=== PATIENT | female | born 1980 | race Caucasian/White ===

== ENCOUNTER 2018-04-16 06:03 | Emergency (ER) | payer MEDICAID ==
[~2018-04-16] VITALS: Ht 147.3 cm; Wt 61.3 kg
[~2018-04-16 06:03] MED LIST: ONDA8TAB9 PO
[2018-04-16 06:10] VITALS: BP 128/49
== END 2018-04-16 06:47 | disposition home or self-care (01) ==
LOC: ER 06:04
DX: J06.9 Acute upper respiratory infection, unspecified (principal); J45.909 Unspecified asthma, uncomplicated; F15.90 Other stimulant use, unspecified, uncomplicated
CPT/HCPCS: 99281

== ENCOUNTER 2019-03-24 15:07 | Emergency (ER) | payer MEDICAID ==
[~2019-03-24] VITALS: Ht 149.9 cm; Wt 80.0 kg
[2019-03-24] MEDS ORDERED: normal saline 1000ML IV soln IVB ONE (15:25)
[2019-03-24] MEDS ORDERED: ondansetron/PF 4mg/2ml inj IV ONE (15:25)
[2019-03-24] MEDS ORDERED: famotidine/PF 10 mg/ml inj IV ONE (15:30)
[2019-03-24 15:46] LABS: CLARITY,URINE CLOUDY (Clear); COLOR,URINE YELLOW (Yellow); GLUCOSE, URINE NEGATIVE (Neg); KETONES,URINE NEGATIVE (Neg); LEUKOCYTE ESTERASE ,URINE NEGATIVE (Neg); NITRITES, URINE NEGATIVE (Neg); OCCULT BLOOD,URINE NEGATIVE (Neg); PH,URINE 5.5 (4.8-8.0); PROTEIN,URINE NEGATIVE (Neg); UROBILINOGEN,URINE 0.2 E.U/dL (0.2-1.0)
[2019-03-24 15:48] LABS: BASOPHILS % (AUTO) 0.3 % (0-1); EOSINOPHILS # (AUTO) 0.1 X10'3 (0-0.9); EOSINOPHILS % (AUTO) 1.8 % (0-6); HEMOGLOBIN 13.4 g/dl (12.0-16.0); LYMPHOCYTES % (AUTO) 12.6 % (21-51); MEAN CORPUSCULAR HEMOGLOBIN 30.5 PG (27.0-31.0); MEAN CORPUSCULAR HGB CONC 34.4 g/dL (33.0-36.5); MEAN CORPUSCULAR VOLUME 88.7 FL (78-98); MEAN PLATELET VOLUME 8.5 FL (7.4-10.4); MONOCYTES # (AUTO) 0.2 X10'3 (0-0.9); MONOCYTES % (AUTO) 2.8 % (2-12); NEUTROPHILS # (AUTO) 6.6 X10'3 (1.8-7.7); NEUTROPHILS % (AUTO) 82.5 % (42-75); PLATELET COUNT 342 X10'3 (140-440)
[2019-03-24 15:50] LABS: UA COLLECTION TYPE CLN CATCH MIDSTREAM
[2019-03-24 15:53] LABS: BACTERIA,URINE 1+ /HPF (Neg); MUCUS STRANDS MANY /LPF (Neg); RBC,URINE NONE SEEN /HPF (0-2); WBC,URINE 0-4 /HPF (0-4)
[2019-03-24 15:54] LABS: SQUAMOUS EPITHELIAL CELL,UR MANY /LPF (FEW)
[2019-03-24 15:58] LABS: ALANINE AMINOTRANSFERASE 31 U/L (12-78); ALBUMIN 3.7 G/DL (3.4-5.0); ALBUMIN/GLOBULIN RATIO 0.8 (1.1-1.5); ALKALINE PHOSPHATASE 73 IU/L (46-116); ANION GAP 11 (8-16); ASPARTATE AMINO TRANSFERASE 21 U/L (10-37); BILIRUBIN,TOTAL 0.3 MG/DL (0.1-1.0); BLOOD UREA NITROGEN 10 MG/DL (7-18); BUN/CREATININE RATIO 13.7 (6.6-38.0); CALCIUM 8.8 MG/DL (8.5-10.1); CHLORIDE 101 MMOL/L (99-107); CREATININE 0.73 MG/DL (0.40-0.90); GLUCOSE 99 MG/DL (70-104); POTASSIUM 3.6 MMOL/L (3.5-5.1); SODIUM 137 MMOL/L (135-145); TOTAL CARBON DIOXIDE 25.2 MMOL/L (24-32); TOTAL PROTEIN 8.4 G/DL (6.4-8.2); eGFR 89 ML/MIN
[2019-03-24] MEDS ORDERED: ONDA4TAB6 PO (16:12)
[2019-03-24 16:19] LABS: URINE HCG NEGATIVE (NEG)
[2019-03-24 16:50] VITALS: BP 130/79
== END 2019-03-24 16:40 | disposition home or self-care (01) ==
LOC: ER 15:07
DX: K52.9 Noninfective gastroenteritis and colitis, unspecified (principal)
CPT/HCPCS: 36415; 80053; 81001; 81025; 85025; 96374; 96375; 99283; J2405; J3490; J7030

== ENCOUNTER 2023-08-09 19:11 | Emergency (ER) | payer MEDICAID ==
[~2023-08-09] VITALS: Ht 149.9 cm; Wt 94.8 kg
[~2023-08-09 19:11] MED LIST changes: +ONDA4TAB6 PO
[2023-08-09 19:14] VITALS: BP 146/77; PULSE 88; TEMP 98.2; O2SAT 98
[2023-08-09] MEDS ORDERED: ketorolac trometh inj. 60 MG/2 ML VIAL IM ONE (20:05)
[2023-08-09] MEDS ORDERED: LIDO700A32 TOP (20:08)
[2023-08-09] MEDS: dexamethasone sod phosphate 10mg/ml inj IM STA (20:26)
[2023-08-09 20:27] VITALS: RESP 20
[2023-08-09] MEDS: ketorolac trometh. 30mg/ml inj. IM ONE (20:27)
== END 2023-08-09 20:38 | disposition home or self-care (01) ==
LOC: ER 19:12
DX: R07.89 Other chest pain (principal); R07.81 Pleurodynia; M94.0 Chondrocostal junction syndrome [Tietze]; F15.90 Other stimulant use, unspecified, uncomplicated; Z79.899 Other long term (current) drug therapy; Z79.2 Long term (current) use of antibiotics
CPT/HCPCS: 71045; 96372; 99284; J1100; J1885